=== PATIENT | male | born 1955 | race Native Hawaiian/Other Pacific Islander ===

== ENCOUNTER 2017-03-17 15:24 | Emergency (ER) | payer OTHER ==
[~2017-03-17] VITALS: Ht 177.8 cm; Wt 133.8 kg
== END 2017-03-17 17:00 | disposition home or self-care (01) ==
LOC: ED 15:24
DX: H83.2X2 Labyrinthine dysfunction, left ear (principal); J30.2 Other seasonal allergic rhinitis
CPT/HCPCS: 99282